=== PATIENT | male | born 1955 | race Caucasian/White ===

== ENCOUNTER 2019-04-09 02:55 | Inpatient (IN) | payer OTHER ==
[2019-04-09] VITALS (12 sets, daily range): BP systolic 148–166; BP diastolic 75–93
[~2019-04-09] VITALS: Ht 170.2 cm; Wt 73.5 kg
[2019-04-09 03:41] LABS: BASOPHILS 0.6 % (0.0-2.0); EOSINOPHILS 1.5 % (0.0-3.0); HEMATOCRIT 40.5 % (42.0-52.0); HEMOGLOBIN 14.3 gm/dL (14.0-18.0); LYMPHOCYTES 22.6 % (24.0-44.0); MCH 35.9 pg (26.0-34.0); MCHC 35.3 g/dL (28.0-37.0); MCV 101.7 fL (80.0-100.0); MONOCYTES 8.1 % (1.0-8.0); PLATELET COUNT 219 thou/uL (150-400); POLYS 67.2 % (36.0-66.0); RBC 3.98 mil/uL (4.50-6.00); RDW 12.4 % (10.5-14.5); WBC 5.9 thou/uL (4.0-11.0)
[2019-04-09] MEDS ORDERED: ASPIRIN81 M2 PO (03:44)
[2019-04-09] MEDS ORDERED: LIPITOR40 MG PO (03:45)
[2019-04-09 03:50] LABS: ANION GAP 10 mmol/L (7-16); BUN 5 mg/dL (7-18); CALCIUM 8.8 mg/dL (8.5-10.1); CHLORIDE 95 mmol/L (98-107); CO2 26 mmol/L (21-32); CREATININE 0.7 mg/dL (0.7-1.3); GLUCOSE 105 mg/dL (74-106); POTASSIUM 3.5 mmol/L (3.5-5.1); SODIUM 131 mmol/L (136-145)
[2019-04-09 03:59] LABS: TROPONIN-I <0.06 ng/mL (<0.06)
[2019-04-09 04:00] LABS: APTT 26.6 Seconds (24.5-32.8); INR 1.1; PROTIME 11.4 Seconds (9.3-11.4)
--- NOTE | 2019-04-09 07:49 | NUR ---
PT ORIENTED TO ROOM AND UNIT. BED LOW AND LOCKED, SIDE RAILS UPX 3, CALL LIGHT IN REACH. WILL CONTINUE TO ASSESS.
[2019-04-09 08:38] LABS: MAGNESIUM 1.7 mg/dL (1.8-2.4)
[2019-04-09] MEDS ORDERED: NITROSTAT0.4 M1 SUBLING (08:45)
[2019-04-09] MEDS ORDERED: TOPROL XL100 MG PO (09:04)
[2019-04-09] MEDS ORDERED: LISINOPRIL40 MG PO (09:04)
[2019-04-09 09:05] LABS: FOLIC ACID 4.2 ng/mL (8.6-58.9)
[2019-04-09 09:25] LABS: CHOLESTEROL 103 mg/dL (<200); HDL CHOLESTEROL 38 mg/dL (>40); LDL CHOLESTEROL 43 mg/dL (<100); TC:HDL 2.7 Ratio (Not establshd); TRIGLYCERIDE 112 mg/dL (<150); VLDL 22 mg/dL (<40)
--- NOTE | 2019-04-09 10:14 | NUR ---
PT OFF UNIT TO STRESS ECHO.
--- NOTE | 2019-04-09 11:13 | NUR ---
PT RETURN FROMO STRESS ECHO.
--- NOTE | 2019-04-09 15:25 | NUR ---
PT OFF UNIT TO [employer] PRINCIPAL.
--- NOTE | 2019-04-09 17:47 | EXE ---
[facility] [place] [address] [address] STRESS ECHOCARDIOGRAM Name: MARTHA YEPEZ Room #: 351-P [facility] IN [facility]#: [id number] ������������� Admission: 04/09/19 ������������� Attend Phys: Rosendo Hunter MD Discharge: ��� ������������� ��� Date of : 59 Date of Service: 04/09/19 1747 �� Report #: [id number] �������� ��������������������������������������������[id number] THIS REPORT FOR: //name// APPROVED REPORT Study performed: 04/09/2019 10:13:46 Exam: Stress Echocardiogram Indication: Chest pain , Hypertension, Hyperlipidemia Patient Location: Echo lab Stress Nurse: Trina Atwood RN Room #: 357 Status: routine Ht: 5 ft 7 in HR: 56 bpm BP: 148/90 mmHg Rhythm: Bradycardia Medical History Cardiac Risk Factors: HTN, Hyperlipidemia, Tobacco History (Current/Recent) Exercise History: Sedentary Procedure The patient underwent an Exercise Stress Test using the Harley Protocol. Blood pressure, heart rate, and EKG were monitored. An Echocardiogram was performed by pulmonary function technician in four stages in quad fashion. At peak stress, four selected images were obtained and placed side by side with resting images for comparison. Stress Test Details Stress Test: Exercise stress testing was performed using a Harley protocol. HR Resting HR: 56 bpm Max Heart Rate (APMHR): 159 bpm Max HR Achieved: 125 bpm Target HR (85% APMHR): 135 bpm % of APMHR: 78 Recovery HR: 74 bpm HR response to stress: Blunted HR response to stress BP Resting BP: 148/90 mmHg Max BP: 178/96 mmHg Recovery BP: 146/70 mmHg BP response to stress: Normal blood pressure response to [facility] [address] [place] [address] STRESS ECHOCARDIOGRAM Name: TOMASZJOSEMARTHA Shirin Room #: 351-P [facility] IN ..#: [id number] ������������� Admission: 04/09/19 ������������� Attend Phys: Rosendo Hunter MD Discharge: ��� ������������� ��� Date of : 59 Date of Service: 04/09/19 1747 �� Report #: [id number] �������� ��������������������������������������������[id number] stress. ECG Clinical Reason for Termination: Maximal effort Exercise duration: 9 min 39 sec Highest Stage Achieved: Stage 4: 4.2 mph at 16% grade. Exercise capacity: 11.4 METs Overall Exercise Capacity for Age: Average Pre-Stress Echo The resting Echocardiogram showed normal left ventricular contractility with an estimated Ejection Fraction of about >55%. Post-Stress Echo The stress Echocardiogram showed left ventricular contractility with an estimated Ejection Fraction of about 65-70%. The stress Echocardiogram demonstrated wall motion abnormality in the inf wall . Conclusion Clinical Response: Equivocal Exercise Capacity: Average Stress ECG Response: Ischemic Stress Echo Images: Ischemic inf wall stress abn No prior study available for comparison. Other Information Study Quality: Adequate <Conclusion> inf wall stress abn ��������������������������������������������� <ELECTRONICALLY SIGNED> ���������������������������������������� By: Saleem Lr MD, [facility] ��������������������������������������������� 04/09/19 174 46 46 Saleem Lr MD, [facility] /INF
--- NOTE | 2019-04-09 18:09 | NUR ---
PT RETURN [facility] PEDICURIST WITH RIGHT GROIN SITE CDI WITH NO HEMATOMA. PT WILL BE ON BEDREST FOR 6 HOURS. RIGHT PEDAL PULSE IS PALPABLE AND PT DENIES PAIN AT THIS TIME. WILL CONTINU TO ASSESS.
--- NOTE | 2019-04-09 18:44 | CATHLAB ---
[facility] [address] [place] [address] INVASIVE PROCEDURE REPORT Name: DESTINYMiltonJOSEMARTHA J Room #: 351-P [facility] IN ..#: [id number] ������������� Admission: 04/09/19 ������������� Attend Phys: Rosendo Hunter MD Discharge: ��� ������������� ��� Date of : 59 Date of Service: 04/09/19 1843 �� Report #: [id number] �������� ��������������������������������������������[id number] THIS REPORT FOR: //name// APPROVED REPORT Study performed: 04/09/2019 16:29:20 Patient Details Patient Status: In-Patient Room #: The patient is a 63 year-old male Event Personnel Saleem Lr Vice President Biostatistics, Joycelyn So RN, Alonzo Zimmerman RTR Scryasmin, Darrian Lawrence Monitor Procedures Performed Art Access - R femoral artery* [id number] Initial Mod Sed Same Phys/QHP Gr5y [id number] Left Heart Cath w/or w/o Coronaries [id number] [facility] Aortogram Abdominal Peripheral Angio 600954 Hemostasis with Manual pressure Indication Chest pain Procedure Narrative The patient was brought urgently to the Cardiac Catheterization Laboratory and was prepped and draped in a sterile manner. The Right Groin^ was infiltrated with 1% Lidocaine subcutaneous anesthesia. A PINNACLE 6FR TIF Sheath #[id number] sheath was inserted into the RFA^. Coronary angiography was performed using coronary diagnostic catheters. The right coronary system was accessed and visualized with a JR 4 catheter. The left coronary system was accessed and visualized with a JL 4 catheter. The left ventricle was accessed and visualized with a Pigtail catheter. Left ventriculogram was performed in KELLY projection. An aortogram of the abdominal aorta was performed. Hemostasis was obtained with manual pressure following sheath removal without any complications. The patient tolerated the procedure well and there were no complications associated with the procedure. There was no hematoma. Intraoperative Conscious Sedation Sedation start time: 16:12 Case end Time: 17:35 Fentanyl 100 mcg Versed 2 mg [facility] [address] INVASIVE PROCEDURE REPORT Name: MARTHA YEPEZ Room #: 351-P [facility] IN [facility]#: [id number] ������������� Admission: 04/09/19 ������������� Attend Phys: Rosendo Hunter MD Discharge: ��� ������������� ��� Date of : 59 Date of Service: 04/09/19 1843 �� Report #: [id number] �������� ��������������������������������������������[id number] Fluoro Time: 8.70 minutes Dose: DAP 06112.00 cGycm2 1466 mGy Contrast Type and Amount: Omnipaque 200 ml Hemodynamics The left ventricular pressure is 150/8 mmHg with a mean of mmHg. The left ventricular end diastolic pressure is 24 mmHg. PCI Technique Lesion Percutaneous coronary intervention was performed on the External iliac. Conclusion #1 Left main calcified large free of disease giving rise to LAD and circumflex #2 LAD extensive calcification with 40 and 50% irregularities proximally mid lesion of 60% extends around the apex with brisk flow and calcification throughout collateral filling of the septal to the PDA #3 circumflex OM first OM well preserved mid circumflex 7080% eccentric long calcified lesion filling a AV groove and a distal OM diffusely diseased #4 dominant right coronary occluded in the mid vessel there is collateral filling to the PDA MANISHA via left system #5 abdominal aorta appears to be intact no aneurysm there is a high-grade lesion in the right external iliac artery significant calcification as noted through the aortic wall and iliac system. Left iliac system mildly diseased Recommendations and plan patient had a VF arrest with right coronary artery ejection. Quickly defibrillated is sinus rhythm. Hemodynamically stable. Dr. Taylor to intervene into right external iliac system this is high-grade lesion I had difficulty crossing to perform this procedure. We'll treat aggressively and medically. Patient has syncope pulmonary history alcohol history. Will intensify cholesterol hypertensive cardiac medication. ��������������������������������������������� <ELECTRONICALLY SIGNED> ���������������������������������������� By: Saleem Lr MD, FACC ��������������������������������������������� 04/09/191842 42 42 Saleem Lr MD, FACC /INF
[2019-04-10 03:32] VITALS: BP 141/77
[2019-04-10 03:40] VITALS: BP 141/77
[2019-04-10 06:23] LABS: ABSOLUTE NEUTROPHILS 4.7 thou/uL (1.4-8.2); BASOPHILS 0.5 % (0.0-2.0); EOSINOPHILS 0.7 % (0.0-3.0); HEMATOCRIT 41.1 % (42.0-52.0); HEMOGLOBIN 14.3 gm/dL (14.0-18.0); LYMPHOCYTES 18.2 % (24.0-44.0); MCH 35.9 pg (26.0-34.0); MCHC 34.9 g/dL (28.0-37.0); MCV 102.8 fL (80.0-100.0); MONOCYTES 9.4 % (1.0-8.0); PLATELET COUNT 195 thou/uL (150-400); POLYS 71.2 % (36.0-66.0); RDW 12.4 % (10.5-14.5); WBC 6.6 thou/uL (4.0-11.0)
--- NOTE | 2019-04-10 06:26 | NUR ---
PT MAKING PROGRESS TOWARDS GOALS. RIGHT GROIN WITH DRESSING DRY AND INTACT. NO BRUIT AUSCULTATED. PT HAS DENIED ANY PAIN IN HIS RIGHT GROIN, FLANK OF PELVIC REGION. NO REPORTS OF CHEST PAIN AND NO DYSRHYTHMIA OVERNIGHT. SMALL HEMATOMA NOTED OVER THE LOWER RIGHT HIP AND JUST BELOW THE RIGHT PANNUS ADJACENT TO THE PUNCTURE SITE. HEMTOMA LOCALE AND SIZE DID NOT INCREASE OVERNIGHT.
[2019-04-10 06:29] LABS: CALCIUM 8.7 mg/dL (8.5-10.1); CREATININE 0.7 mg/dL (0.7-1.3); POTASSIUM 3.8 mmol/L (3.5-5.1)
[2019-04-10 07:25] VITALS: BP 166/80
[2019-04-10] MEDS ORDERED: IMDUR 30 MG TAB30 M1 PO (11:35)
[2019-04-10] MEDS ORDERED: METOPROLOL SUCC25 M1 PO (11:36)
[2019-04-10 11:49] VITALS: BP 166/80
--- NOTE | 2019-04-10 12:19 | NUR ---
ASsumed care of Pt at 0700. Pt AOX4 in no acute distress. Denies chest pain. up w/ SBA to BR. evaluated by cardiology - Carotid US performed at bedside - showing no significant stenosis. OK for d/c by cardiology. Anticipating discharge orders.
[2019-04-10] MEDS ORDERED: CLOPIDOGREL75 MG PO (12:45)
--- NOTE | 2019-04-11 22:25 | EKG ---
[address] [address] ELECTROCARDIOGRAM REPORT Name: MARTHA YEPEZ Room #: 351-P [facility] IN ..#: [id number] ������������������ Admission: 04/09/19 ������������������ Attend Phys: Rosendo Hunter MD Discharge: 04/10/19 ������������������ Date of : 59 Report #: [id number] ����������������������������������������������������������������� [id number] THIS REPORT FOR: //name// [facility] ED Test Date: 2019-04-09 Test Time: 03:20:25 Pat Name: MARTHA LUCHO Department: Room: [facility] Gender: M Lpta: CRYSTAL : 1955 Requested By: Madyson Severino Order Number: [id number] MD: Rony Bustamante Measurements Intervals [place] Rate: 59 P: 64 OH: 188 QRS: 67 QRSD: 104 T: 29 QT: 435 QTc: 431 Interpretive Statements Sinus rhythm No previous ECG available for comparison Electronically Signed On 04-11-2019 22:24:56 CDT by Rony Bustamante [email or web address] ��������������������������������������������� <ELECTRONICALLY SIGNED> ���������������������������������������� By: Rony Bustamante MD ��������������������������������������������� 04/11/19 2224 0320 0320 Rony Bustamante MD /VIVIANE
== END 2019-04-10 13:45 | disposition home or self-care (01) | DRG 287 ==
LOC: ER 02:55 → EROBS 06:03 → 3W 06:03
PROVIDERS: Emergency Medicine; Nurse Practitioner; ADMIT Hospitalist
PROC: B2151ZZ Fluoroscopy of Left Heart using Low Osmolar Contrast (ICD-10-PCS; principal; 2019-04-09)
PROC: B2111ZZ Fluoroscopy of Multiple Coronary Arteries using Low Osmolar Contrast (ICD-10-PCS; principal; 2019-04-09)
PROC: B4101ZZ Fluoroscopy of Abdominal Aorta using Low Osmolar Contrast (ICD-10-PCS; principal; 2019-04-09)
PROC: 4A023N7 Measurement of Cardiac Sampling and Pressure, Left Heart, Percutaneous Approach (ICD-10-PCS; principal; 2019-04-09)
DX: I25.110 Atherosclerotic heart disease of native coronary artery with unstable angina pectoris (principal); E87.1 Hypo-osmolality and hyponatremia; F10.129 Alcohol abuse with intoxication, unspecified; E78.5 Hyperlipidemia, unspecified; I10 Essential (primary) hypertension; F17.210 Nicotine dependence, cigarettes, uncomplicated; S00.83XA Contusion of other part of head, initial encounter; J32.9 Chronic sinusitis, unspecified; F19.10 Other psychoactive substance abuse, uncomplicated; Z60.2 Problems related to living alone; J44.9 Chronic obstructive pulmonary disease, unspecified; I73.9 Peripheral vascular disease, unspecified; I77.1 Stricture of artery; Z88.6 Allergy status to analgesic agent; I25.2 Old myocardial infarction; Z79.82 Long term (current) use of aspirin; Z79.899 Other long term (current) drug therapy; Z82.49 Family history of ischemic heart disease and other diseases of the circulatory system; Z81.8 Family history of other mental and behavioral disorders; Z80.9 Family history of malignant neoplasm, unspecified; X58.XXXA Exposure to other specified factors, initial encounter; Y93.89 Activity, other specified; Y92.89 Other specified places as the place of occurrence of the external cause; Y99.8 Other external cause status
CPT/HCPCS: 10879

== ENCOUNTER 2020-09-25 16:55 | Inpatient (IN) | payer OTHER ==
[~2020-09-25] VITALS: Ht 170.2 cm; Wt 78.0 kg
--- NOTE | ~2020-09-25 | HC ---
[facility] [place] [address] CONSULTATION Name: MARTHA YEPEZ Room #: 205-P ADM IN [place].#: [id number] Admission: 09/25/20 Attend Phys: Marquise Pritchett MD Discharge: Date of : 59 Report #: [id number] THIS REPORT FOR: cc: FAM - No family physician/PCP FAM - No family physician/PCP Adis Ahuja MD ~ DATE OF SERVICE: 09/26/2020 HISTORY OF PRESENT ILLNESS: This is a 65-year-old male patient who was evaluated for the possibility of seizure. 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 The only thing he knows of is that he was not feeling well for a few weeks before the seizure happened. He did have another seizure about 30-40 years ago. He said that was attributed to the codeine he took. At this time when he came in, he has increased white count, which has gone down, which is most likely related to demargination caused by seizure, but his sodium was also 124. His magnesium was trace low at 1.6, but that has also come up to normal now after supplementation. He says that he drinks very little alcohol. He says he mostly drinks nonalcoholic beverages, but sometime he mixes them with alcohol. That is probably not correct or is an underestimation of his alcohol intake because he does have macrocytosis. REVIEW OF SYSTEMS: A 14-point review of system was carried out both from him as well as from the record. He does have stent put in. He continued to smoke. He did looks like he had another episode for which he was admitted in 2019. He has seen Cardiology. The last time he was here, he had both TSH and vitamin B12 done and they were unremarkable. A 14-point review of system is otherwise positive for some COPD, hypertension, hyperlipidemia, myocardial infarction, tobacco abuse, alcohol abuse. Presently, he feels back to his baseline. He is not complaining of any chest pain, respiratory difficulty, GI, , musculoskeletal, constitutional, dermatological, hematological, psychiatric, throat, allergic symptom associated with present symptomatology. PAST MEDICAL HISTORY: Positive for seizure. FAMILY HISTORY: Negative for any congenital epilepsy. SOCIAL HISTORY: He smokes as well as drink alcohol. PHYSICAL EXAMINATION: NEUROLOGICAL: Indicate he is alert, responsive, able to follow simple and complex command. His speech, concentration, fund of knowledge and memory is at his baseline. Cranial nerve examination 2-12 looks unremarkable. He does not [address] [address] CONSULTATION Name: MARTHA YEPEZ Room #: 205-P [facility] IN [facility].#: [id number] Admission: 09/25/20 Attend Phys: Marquise Pritchett MD Discharge: Date of : 59 Report #: [id number] have any nystagmus. His strength, sensation, reflexes and tone is symmetrical. His reflexes are elicitable, but his both plantars are withdrawal. There is no meningeal sign. There is no carotid bruit. I could not look at the fundus. He is a well-developed individual. He does not have any visual or hearing problems. EXTREMITIES: He had stents in the lower extremities. He has no edema, cyanosis or jaundice. CARDIAC AND RESPIRATORY: Clinically unremarkable. VITAL SIGNS: Indicated blood pressure 118/77, respirations 16, pulse is 88, temperature is 97.7. LABORATORY DATA: His white count has returned back to normal. His MCV is high. His sodium is low. When he came in, his CPK was also high ____. IMPRESSION: This patient had a grand mal seizure. He had another one which he says 20-30 years ago and he was admitted in 2019 with an unexplained episode of syncope. It would appear that he may be having seizures, but a lot of it may be related to his alcohol intake, which I think he underestimated and his electrolyte imbalances including low sodium. I think he has a baseline predisposition to develop seizures, but he probably develop it only in circumstances which can induce seizure. I discussed with him in detail that he has an option of going on anticonvulsant or staying without it. This is a potentially his third episode of seizure and my recommendation will be to go on Keppra. Even stronger recommendation will be that this patient must stop drinking alcohol altogether. He must monitor his electrolytes on a frequent basis including magnesium. I told him that he need to take seizure precautions at least for 6 months and he cannot drive at least for 6 months by state laws, does not matter whether he goes on medications or not go on medications. He wants to think whether he wants to go on medication, but I will suggest going on Keppra, but more importantly, he must stop drinking alcohol of any kind altogether. I will get an MRI done in this patient. He says there is no contraindication for that. I would like to get an MRI with and without contrast. I discussed the potential side effect of contrast including allergic reaction and irreversible dermatological problems which can occur. His BUN and creatinine is normal. The chances are low for that, but it is not excluded. He wants to proceed with MRI of the brain with and without contrast and we will arrange that and we will also arrange an EEG. There was some focality to his seizures because he said he had first symptom on the right side, so I will also get an MRA at the same time. [facility] [address] [place] [address] CONSULTATION Name: MARTHA YEPEZ Room #: 205-P ADM IN M.R.#: [id number] Admission: 09/25/20 Attend Phys: Marquise Pritchett MD Discharge: Date of : 59 Report #: [id number] Thank you very much for this referral. By: 1033 [id number] Adis Ahuja MD /nt
[~2020-09-25 16:55] MED LIST: ASPIRIN81 M2 PO; CLOPIDOGREL75 MG PO; IMDUR 30 MG TAB30 M1 PO; LIPITOR40 MG PO; LISINOPRIL40 MG PO; METOPROLOL SUCC25 M1 PO; NITROSTAT0.4 M1 SUBLING; TOPROL XL100 MG PO
[2020-09-25 16:56] VITALS: BP 136/76
[2020-09-25 19:05] LABS: ABSOLUTE NEUTROPHILS 11.7 thou/uL (1.4-8.2); BASOPHILS 0.3 % (0.0-2.0); EOSINOPHILS 0.4 % (0.0-3.0); HEMATOCRIT 40.5 % (42.0-52.0); MCHC 34.6 g/dL (28.0-37.0); MONOCYTES 5.7 % (1.0-8.0); PLATELET COUNT 248 thou/uL (150-400); POLYS 85.6 % (36.0-66.0); RBC 3.89 mil/uL (4.50-6.00); RDW 12.3 % (10.5-14.5); WBC 13.7 thou/uL (4.0-11.0)
[2020-09-25 19:17] LABS: ANION GAP 13 mmol/L (7-16); BUN 9 mg/dL (7-18); CALCIUM 9.6 mg/dL (8.5-10.1); CHLORIDE 87 mmol/L (98-107); CO2 24 mmol/L (21-32); GLUCOSE 117 mg/dL (74-106); POTASSIUM 3.5 mmol/L (3.5-5.1); SODIUM 124 mmol/L (136-145)
[2020-09-25 19:27] LABS: ALBUMIN 4.6 g/dL (3.4-5.0); MAGNESIUM 1.6 mg/dL (1.8-2.4); SGOT 44 U/L (15-37); SGPT 62 U/L (30-65); TOTAL BILIRUBIN 0.9 mg/dL (0.2-1.0); TOTAL PROTEIN 7.5 g/dL (6.4-8.2); TROPONIN-I <0.06 ng/mL (<0.06)
[2020-09-25 20:00] LABS: URINE BILIRUBIN NEGATIVE (Negative); URINE BLOOD NEGATIVE (Negative); URINE CLARITY CLEAR; URINE COLOR YELLOW; URINE GLUCOSE-RANDOM* NEGATIVE (Negative); URINE KETONES NEGATIVE (Negative); URINE LEUKOCYTES-REFLEX NEGATIVE (Negative); URINE NITRITE-REFLEX NEGATIVE (Negative); URINE PROTEIN (DIPSTICK) TRACE (Negative); URINE SPECIFIC GRAVITY 1.015 (1.005-1.035); URINE UROBILINOGEN 0.2 E.U./dl (0.2-1.0)
[2020-09-25 20:09] LABS: AMP/METHAMP Negative (Negative); BARBITURATES Negative (Negative); BENZODIAZEPINES Negative (Negative); COCAINE Negative (Negative); METHADONE Negative (Negative); OPIATES Negative (Negative); PCP Negative (Negative)
[2020-09-25 20:53] VITALS: BP 135/72
[2020-09-25 21:14] LABS: CHOLESTEROL 103 mg/dL (<200); HDL CHOLESTEROL 47 mg/dL (>40); LDL CHOLESTEROL 21 mg/dL (<100); TC:HDL 2.2 Ratio (Not establshd); TRIGLYCERIDE 175 mg/dL (<150); VLDL 35 mg/dL (<40)
[2020-09-25 21:30] VITALS: BP 126/76
[2020-09-26 01:15] VITALS: BP 114/67
--- NOTE | 2020-09-26 01:53 | NUR ---
PATIENT IS A NEW PATIENT TO THE UNIT THIS SHIFT. HE ARRIVED VIA CART FROM THE ER AND WAS ABLE TO AMBULATE TO THE RESTROOM WITH STANDBY ASSISTANCE INCIDENT FREE. PATIENT IS FULLY ALERT AND ORIENTED AND IS ABLE CALL APPROPRIATELY FOR NEEDS. SEIZURE PRECAUTIONS INITIATED PER PROVIDER ORDER. NO S/S ETOH WITHDRAWAL, NURSE TO CONTINUE TO ASSESS. NURSE TO COMPLETE ADMISSION AND INITIATE PLAN OF CARE. CONTINUE PLAN OF CARE.
[2020-09-26] MEDS ORDERED: BENICAR40 MG PO (03:50)
[2020-09-26] MEDS ORDERED: BREO ELLIPTA 11 EACH IH (03:51)
[2020-09-26 04:45] VITALS: BP 130/68
[2020-09-26 04:51] LABS: HEMATOCRIT 35.3 % (42.0-52.0); HEMOGLOBIN 12.6 gm/dL (14.0-18.0); MCH 36.7 pg (26.0-34.0); MCHC 35.7 g/dL (28.0-37.0); RBC 3.42 mil/uL (4.50-6.00); RDW 12.2 % (10.5-14.5); WBC 5.1 thou/uL (4.0-11.0)
[2020-09-26 04:56] LABS: CALCIUM 8.9 mg/dL (8.5-10.1); MAGNESIUM 2.1 mg/dL (1.8-2.4); POTASSIUM 3.5 mmol/L (3.5-5.1)
--- NOTE | 2020-09-26 07:31 | EKG ---
[facility] [place] [address] ELECTROCARDIOGRAM REPORT Name: MARTHA YEPEZ Room #: 205-P ADM IN M.R.#: [id number] Admission: 09/25/20 Attend Phys: Marquise Pritchett MD Discharge: Date of : 59 Report #: [id number] THIS REPORT FOR: cc: MAREK - Kacie family physician/PCP MAREK - Kacie family physician/PCP Rai Moran MD [facility] THIS REPORT FOR: //name// [facility] ED Test Date: 2020-09-25 Test Time: 19:08:01 Pat Name: MARTHA YEPEZ Department: Room: [facility] Gender: M Site Leasing Agent: no : 1955 Requested By: Tommy Locke Order Number: [id number] MD: Rai Moran Measurements Intervals [place] Rate: 94 P: 75 OH: 148 QRS: 55 QRSD: 101 T: 56 QT: 370 QTc: 463 Interpretive Statements Sinus rhythm Borderline low voltage, extremity leads Compared to ECG 04/09/2019 03:20:25 No significant changes Electronically Signed On 09-26-2020 7:31:38 LUMBER BEARER by Rai Moarn [email or web address] <ELECTRONICALLY SIGNED> By: Rai Moran MD, FACC 09/26/20 0731 1908 [id number] Rai Moran MD, [facility] /EPI
--- NOTE | 2020-09-26 07:33 | NUR ---
ASSUMED CARE OF PATIENT AT 1900; ASSESSMENTS CHARTED; AOX4/SEIZURE PRECAUTIONS; CIWA PROTOCOL; SR ON THE MONITOR; RESTED QUIETLY THROUGHOUT MOST OF THE NIGHT; WILL CONTINUE TO MONITOR
[2020-09-26 09:15] VITALS: BP 118/77
--- NOTE | 2020-09-26 16:28 | NUR ---
INITIAL ASSESSMENT: Received consult. AYAKA reviewed chart and spoke with nursing and attending physician. Pt was admitted from home due to seizures. Neuro consulted. MRI ordered today. AYAKA notified by UR RN that pt's insurance may not be in-network with [facility]. Pt may need to transfer to another hospital. AYAKA notified attending physician of possible need for transfer. AYAKA spoke with pt via phone. Introduced role of AYAKA. Pt is alert/orientated x 4. Pt reports he lives with his ex-. Prior to admission, pt was independent with ADLs. Pt has a cane and crutches to use if needed. No hx of services or post-acute placement. Pt's PCP is at the [facility]. He was seeing Dr. Rohit Barlow. Pt denies having any discharge needs at this time. AYAKA is following to assist as needed with discharge planning.
--- NOTE | 2020-09-26 16:54 | NUR ---
ASSESSMENT CHARTED. PT ALERT AND ORIENTED. VSS. DENIED HAVING PAIN OR DISCOMFORT. VSS. NIH SCORE 0. CIWA SCORE 0. NEW ORDERS NOTED. NO CONCERNS AT THIS TIME.
[2020-09-26 20:00] VITALS: BP 140/50
[2020-09-26 20:10] VITALS: BP 140/50
--- NOTE | 2020-09-27 04:34 | NUR ---
PT IS ALERT AND ORINENTD X4. LUNGS ARE CLEAR ON ROOM AIR. SITING UP WATCHING TV THIS AM. COMPLAINS OF SHOULDER PAIN. TYLENOL GIVEN AND JELL TO SHOULDER FOR DISCOMFORT. NO SEIZURE ACTIVITY NOTED AND VITALS STABLE. WILL CONTINUE TO ASSESS AN MONITOR PER NURSING
[2020-09-27 04:49] VITALS: BP 135/65
[2020-09-27 09:53] VITALS: BP 139/74
[2020-09-27 11:38] VITALS: BP 135/73
[2020-09-27] MEDS ORDERED: VITAMIN B-1100 M2 PO (12:31)
[2020-09-27] MEDS ORDERED: NICOTINE1 EAC2 TRANSDERM (12:31)
[2020-09-27] MEDS ORDERED: FOLIC ACID0.4 MG PO (12:31)
[2020-09-27] MEDS ORDERED: DOXYCYCLINE 10100 M2 PO (12:31)
[2020-09-27] MEDS ORDERED: MULTIVITAMINS1 EAC7 PO (12:31)
[2020-09-27] MEDS ORDERED: ACETAMINOPHEN325 M1 PO (12:31)
[2020-09-27] MEDS ORDERED: PREDNISONE 5 MG5 MG PO (12:31)
[2020-09-27 13:05] VITALS: BP 135/73
--- NOTE | 2020-09-27 13:50 | NUR ---
ASSESSMENT CHARTED. PT ALERT AND ORIENTED. VSS. DENIED HAVING PAIN OR DISCOMFORT. SEEN BY DR. CHAUDHRY AND DR. SMITH. DISCHARGE INSTRUCTIONS GIVEN TO PT. PT VERBERLISED UNDERSTANDING.
== END 2020-09-27 13:53 | disposition home or self-care (01) | DRG 100 ==
LOC: ER 16:55 → 2N 19:48 → EROBS 19:48 → 2N 20:54
PROVIDERS: Emergency Medicine; Nurse Practitioner Family; ADMIT Internal Medicine; ATTEND Internal Medicine
DX: G40.409 Other generalized epilepsy and epileptic syndromes, not intractable, without status epilepticus (principal); J18.9 Pneumonia, unspecified organism; J44.1 Chronic obstructive pulmonary disease with (acute) exacerbation; E87.0 Hyperosmolality and hypernatremia; M62.82 Rhabdomyolysis; J44.0 Chronic obstructive pulmonary disease with (acute) lower respiratory infection; E78.5 Hyperlipidemia, unspecified; I65.21 Occlusion and stenosis of right carotid artery; I10 Essential (primary) hypertension; D53.9 Nutritional anemia, unspecified; E83.42 Hypomagnesemia; F10.10 Alcohol abuse, uncomplicated; Y90.9 Presence of alcohol in blood, level not specified; I73.9 Peripheral vascular disease, unspecified; F17.210 Nicotine dependence, cigarettes, uncomplicated; D72.829 Elevated white blood cell count, unspecified; Z79.01 Long term (current) use of anticoagulants; I25.2 Old myocardial infarction; Z79.899 Other long term (current) drug therapy; Z79.82 Long term (current) use of aspirin; Z88.5 Allergy status to narcotic agent
CPT/HCPCS: 10081